=== PATIENT | female | born 1955 | race Caucasian/White ===

== ENCOUNTER 2021-04-05 00:15 | Inpatient (IN) | payer SELFPAY ==
[2021-04-05 00:43] VITALS: BMI 36.2
[2021-04-05] MEDS ORDERED: FAMOTIDINE 20 MG/50 ML IVPB 20 MG/50 ML MG IVPB ONE (01:11)
[2021-04-05] MEDS ORDERED: MAG HYDROX/AL HYDROX/SIMETH 30 ML UNIT-DOSE CUP PO ONE (01:11)
[2021-04-05] MEDS ORDERED: FAMOTIDINE 20 MG TABLET PO ONE (01:43)
[2021-04-05] MEDS ORDERED: FAMOTIDINE 20 MG TABLET ONE (01:56)
[2021-04-05] MEDS ORDERED: MAG HYDROX/AL HYDROX/SIMETH 30 ML UNIT-DOSE CUP ONE ×2 (01:56→02:21)
[2021-04-05 05:48] LABS: HEMATOCRIT 38.7 % (32.4-45.2); HEMOGLOBIN 13.4 GM/dL (10.7-15.3); MCH 30.2 pg (25.7-33.7); MCHC 34.7 g/dl (32.0-36.0); MEAN PLT VOLUME 8.2 fl (7.5-11.1); PLATELET COUNT 241 10^3/uL (134-434); RBC 4.44 M/mm3 (3.60-5.2); RDW 14.4 % (11.6-15.6); WHITE BLOOD COUNT 23.6 K/mm3 (4.0-10.0)
[2021-04-05 06:07] LABS: CHLORIDE 100 mmol/L (98-107); SODIUM 136 mmol/L (136-145)
[2021-04-05 06:09] LABS: CALCIUM 8.8 mg/dL (8.5-10.1)
[2021-04-05 06:10] LABS: ALBUMIN 3.4 g/dl (3.4-5.0); ANION GAP 9 MMOL/L (8-16); BLOOD UREA NITROGEN 11.4 mg/dL (7-18); CO2 27 mmol/L (21-32); GLUCOSE,RANDOM 141 mg/dL (74-106)
[2021-04-05 06:13] LABS: CREATININE 0.9 mg/dL (0.55-1.3); SGOT/AST 984 U/L (15-37); SGPT/ALT 556 U/L (13-61)
[2021-04-05 06:14] LABS: BILIRUBIN,TOTAL 2.4 mg/dL (0.2-1)
[2021-04-05 06:15] LABS: TOT PROT 7.4 g/dl (6.4-8.2)
[2021-04-05 06:16] LABS: ALK PHOS 214 U/L (45-117)
[2021-04-05] MEDS ORDERED: PIPERACILLIN/TAZOB 3.375 GM 3.375 GM in DEXTROSE 5%-WATER - 50 ML IVPB ONE (06:30)
[2021-04-05 07:41] LABS: LIPASE 4798 U/L (73-393)
[2021-04-05 07:47] LABS: LIPASE 4184 U/L (73-393)
[2021-04-05 08:05] LABS: LACTIC ACID 3.1 mmol/L (0.4-2.0)
[2021-04-05 08:14] LABS: PROTHROMBIN TIME (PATIENT) 12.1 SEC (9.7-13.0)
[2021-04-05 08:17] LABS: ACTIVATED PTT 28.1 SECONDS (25.2-36.5)
[2021-04-05] MEDS ORDERED: LACTATED RINGERS SOLUTION 1000 ML INFUS.BAG IV ONE (09:05)
[2021-04-05 09:30] LABS: CHOLESTEROL 231 mg/dL (50-200)
[2021-04-05 09:30] LABS: ANISOCYTOSIS 0; MACROCYTOSIS 0; PLATELET ESTIMATE NORMAL
[2021-04-05 09:31] LABS: TRIGLYCERIDES 82 mg/dL (0-150)
[2021-04-05 09:32] LABS: LDL CHOLESTEROL (ONLY SJRH) 163 mg/dL (5-100)
[2021-04-05 09:33] LABS: HDL CHOLESTEROL 38 mg/dL (40-60)
[2021-04-05 09:58] LABS: PH,URINE 7.5 (5.0-8.0); URINE APPEARANCE CLEAR; URINE BILIRUBIN 1+ (NEGATIVE); URINE COLOR DK YELLOW; URINE GLUCOSE (UA) NEGATIVE (NEGATIVE); URINE KETONE NEGATIVE (NEGATIVE); URINE LEUK ESTERASE NEGATIVE (NEGATIVE); URINE NITRITE NEGATIVE (NEGATIVE); URINE PROTEIN NEGATIVE (NEGATIVE)
[2021-04-05 11:18] LABS: LACTIC ACID 2.3 mmol/L (0.4-2.0)
[2021-04-05] MEDS ORDERED: morphine CARPU-JECT 2 MG/1 ML DISP.SYRIN IVPUSH PRN (11:31)
[2021-04-05] MEDS ORDERED: ACETAMINOPHEN 325 MG TABLET (FP) PO PRN (11:31)
[2021-04-05] MEDS ORDERED: morphine SULFATE 4 MG/ML VIAL IVPUSH PRN (11:31)
[2021-04-05] MEDS ORDERED: ONDANSETRON 4 MG/2 ML VIAL IVPUSH PRN (11:51)
[2021-04-05] MEDS ORDERED: MORPHINE SULFATE 2 MG/ML VIAL IVPUSH PRN (12:03)
[2021-04-05] MEDS ORDERED: ACETAMINOPHEN INJECTION 100 ML IVPB ONE (12:29)
[2021-04-05] MEDS ORDERED: MEROPENEM 1 GM VIAL (RESTRICTED TO ID) IVPB ONE (12:34)
[2021-04-05] MEDS ORDERED: ONDANSETRON 4 MG/2 ML VIAL ONE (12:44)
[2021-04-05] MEDS: MEROPENEM 1 GM in DEXTROSE 5%-WATER 100 ML IVPB SCH ×2 (12:48→18:11)
[2021-04-05] MEDS: LACTATED RINGERS SOLUTION 1,000 ML/1,000 ML INFUS.BAG IV SCH ×2 (12:48→21:15)
[2021-04-05 16:28] LABS: CHOLESTEROL 221 mg/dL (50-200)
[2021-04-05 16:29] LABS: LDL CHOLESTEROL (ONLY SJRH) 159 mg/dL (5-100); TRIGLYCERIDES 84 mg/dL (0-150)
[2021-04-05 16:31] LABS: HDL CHOLESTEROL 40 mg/dL (40-60)
[2021-04-05] MEDS: INSULIN SLIDING SCALE (NOVOLOG) 1 VIAL SQ SCH ×2 (17:52→21:23)
[2021-04-05 21:55] LABS: LACTIC ACID 2.3 mmol/L (0.4-2.0)
[2021-04-06] MEDS ORDERED: DEXTROSE 5%-WATER 100 ML IVPB ONE ×3 (01:46→17:43)
[2021-04-06] MEDS ORDERED: MEROPENEM 1 GM VIAL (RESTRICTED TO ID) IVPB ONE ×3 (01:46→17:43)
[2021-04-06] MEDS: MEROPENEM 1 GM in DEXTROSE 5%-WATER 100 ML IVPB SCH ×3 (01:53→18:55)
[2021-04-06] MEDS: LACTATED RINGERS SOLUTION 1,000 ML/1,000 ML INFUS.BAG IV SCH ×3 (04:09→18:55)
[2021-04-06] MEDS: INSULIN SLIDING SCALE (NOVOLOG) 1 VIAL SQ SCH ×4 (06:24→23:08)
[2021-04-06 08:25] LABS: BASO % 0.2 % (0-2.0); EOS % 4.9 % (0-4.5); HEMOGLOBIN 11.2 GM/dL (10.7-15.3); LYMPH % 7.9 % (8-40); MCHC 33.8 g/dl (32.0-36.0); MEAN CELL VOLUME 88.8 fl (80-96); MEAN PLT VOLUME 8.5 fl (7.5-11.1); MONO % 6.4 % (3.8-10.2); NEUT % 80.6 % (42.8-82.8); PLATELET COUNT 200 10^3/uL (134-434); RBC 3.71 M/mm3 (3.60-5.2); RDW 15.2 % (11.6-15.6); WHITE BLOOD COUNT 14.3 K/mm3 (4.0-10.0)
[2021-04-06 08:34] LABS: INR 1.3 (0.83-1.09)
[2021-04-06 08:37] LABS: ACTIVATED PTT 30.8 SECONDS (25.2-36.5)
[2021-04-06 08:42] LABS: BLOOD UREA NITROGEN 6.6 mg/dL (7-18); CALCIUM 7.8 mg/dL (8.5-10.1); MAGNESIUM 2.1 mg/dL (1.8-2.4)
[2021-04-06 08:44] LABS: BILIRUBIN,DIRECT 3.5 mg/dL (0.0-0.2)
[2021-04-06 08:45] LABS: CREATININE 0.7 mg/dL (0.55-1.3)
[2021-04-06 08:46] LABS: BILIRUBIN,TOTAL 4.5 mg/dL (0.2-1)
[2021-04-06 08:57] LABS: ALBUMIN 2.5 g/dl (3.4-5.0)
[2021-04-06] MEDS ORDERED: ENOXAPARIN NA (PORCINE) 40 MG/0.4 ML DISP.SYRIN SQ SCH (10:00)
[2021-04-06] MEDS ORDERED: INSULIN (NOVOLOG) ASPART 100 UNITS/ML 10ML VIAL ONE (10:52)
[2021-04-06] MEDS ORDERED: LACTATED RINGERS SOLUTION 1,000 ML/1,000 ML INFUS.BAG IV SCH (11:37)
[2021-04-06] MEDS ORDERED: PHYTONADIONE 10 MG/1 ML AMP IVPB ONE (12:00)
[2021-04-07] MEDS ORDERED: MEROPENEM 1 GM VIAL (RESTRICTED TO ID) IVPB ONE ×3 (02:13→17:57)
[2021-04-07] MEDS ORDERED: DEXTROSE 5%-WATER 100 ML IVPB ONE ×3 (02:13→17:58)
[2021-04-07] MEDS: MEROPENEM 1 GM in DEXTROSE 5%-WATER 100 ML IVPB SCH ×3 (03:10→18:17)
[2021-04-07] MEDS: LACTATED RINGERS SOLUTION 1,000 ML/1,000 ML INFUS.BAG IV SCH (03:51)
[2021-04-07] MEDS: INSULIN SLIDING SCALE (NOVOLOG) 1 VIAL SQ SCH ×4 (06:42→22:45)
[2021-04-07] MEDS ORDERED: DEXTROSE 5%-NORMAL SALINE 1,000 ML IV SCH (07:00)
[2021-04-07 09:02] LABS: BASO % 0.4 % (0-2.0); EOS % 8.5 % (0-4.5); HEMATOCRIT 32.9 % (32.4-45.2); HEMOGLOBIN 11.3 GM/dL (10.7-15.3); LYMPH % 13.1 % (8-40); MCH 30.5 pg (25.7-33.7); MCHC 34.5 g/dl (32.0-36.0); MEAN CELL VOLUME 88.5 fl (80-96); MEAN PLT VOLUME 8.6 fl (7.5-11.1); MONO % 8.6 % (3.8-10.2); NEUT % 69.4 % (42.8-82.8); PLATELET COUNT 185 10^3/uL (134-434); RBC 3.72 M/mm3 (3.60-5.2); WHITE BLOOD COUNT 8.5 K/mm3 (4.0-10.0)
[2021-04-07 09:06] LABS: INR 1.18 (0.83-1.09); PROTHROMBIN TIME (PATIENT) 14.5 SEC (9.7-13.0)
[2021-04-07 09:29] LABS: CALCIUM 8.5 mg/dL (8.5-10.1); CREATININE 0.5 mg/dL (0.55-1.3)
[2021-04-07 09:30] LABS: ALBUMIN 2.6 g/dl (3.4-5.0); BLOOD UREA NITROGEN 7.7 mg/dL (7-18)
[2021-04-07 09:31] LABS: TOT PROT 6.2 g/dl (6.4-8.2)
[2021-04-07 09:33] LABS: BILIRUBIN,DIRECT 1.1 mg/dL (0.0-0.2)
[2021-04-07 09:35] LABS: BILIRUBIN,TOTAL 1.8 mg/dL (0.2-1)
[2021-04-07] MEDS ORDERED: POTASSIUM CHLORIDE TABS 20 MEQ TABLET.ER (FP) PO ONE (11:06)
[2021-04-08] MEDS ORDERED: MEROPENEM 1 GM VIAL (RESTRICTED TO ID) IVPB ONE ×2 (01:16→08:47)
[2021-04-08] MEDS ORDERED: DEXTROSE 5%-WATER 100 ML IVPB ONE ×2 (01:16→08:47)
[2021-04-08] MEDS: MEROPENEM 1 GM in DEXTROSE 5%-WATER 100 ML IVPB SCH ×3 (01:20→16:59)
[2021-04-08] MEDS: INSULIN SLIDING SCALE (NOVOLOG) 1 VIAL SQ SCH ×4 (06:32→22:48)
[2021-04-08] MEDS ORDERED: PT OWN MED DRAWER 7, Y5N ONE (07:36)
[2021-04-08 08:28] LABS: BASO % 0.4 % (0-2.0); EOS % 7.3 % (0-4.5); HEMATOCRIT 36.2 % (32.4-45.2); HEMOGLOBIN 12.3 GM/dL (10.7-15.3); MCH 30.1 pg (25.7-33.7); MCHC 34.1 g/dl (32.0-36.0); MEAN CELL VOLUME 88.3 fl (80-96); MEAN PLT VOLUME 8.4 fl (7.5-11.1); MONO % 7.4 % (3.8-10.2); NEUT % 66.9 % (42.8-82.8); PLATELET COUNT 230 10^3/uL (134-434); RDW 15.4 % (11.6-15.6); WHITE BLOOD COUNT 7.6 K/mm3 (4.0-10.0)
[2021-04-08 08:47] LABS: CALCIUM 8.7 mg/dL (8.5-10.1)
[2021-04-08 08:48] LABS: ALBUMIN 2.9 g/dl (3.4-5.0); BLOOD UREA NITROGEN 7.9 mg/dL (7-18); MAGNESIUM 2.3 mg/dL (1.8-2.4)
[2021-04-08 08:50] LABS: AMYLASE 82 U/L (25-115)
[2021-04-08 08:51] LABS: CREATININE 0.6 mg/dL (0.55-1.3)
[2021-04-08 08:53] LABS: BILIRUBIN,TOTAL 1.2 mg/dL (0.2-1); LIPASE 1280 U/L (73-393); TOT PROT 7.1 g/dl (6.4-8.2)
[2021-04-08] MEDS ORDERED: MAGNESIUM OXIDE 400 MG TABLET (FP) PO ONE (17:55)
[2021-04-09] MEDS: MEROPENEM 1 GM in DEXTROSE 5%-WATER 100 ML IVPB SCH ×2 (02:14→09:16)
[2021-04-09] MEDS: INSULIN SLIDING SCALE (NOVOLOG) 1 VIAL SQ SCH ×2 (06:37→10:23)
[2021-04-09 08:31] LABS: BASO % 1.1 % (0-2.0); EOS % 6.1 % (0-4.5); HEMATOCRIT 36.9 % (32.4-45.2); HEMOGLOBIN 12.6 GM/dL (10.7-15.3); MCH 30.2 pg (25.7-33.7); MCHC 34.1 g/dl (32.0-36.0); MEAN CELL VOLUME 88.3 fl (80-96); MEAN PLT VOLUME 8.7 fl (7.5-11.1); MONO % 10.4 % (3.8-10.2); NEUT % 57.4 % (42.8-82.8); PLATELET COUNT 263 10^3/uL (134-434); RBC 4.18 M/mm3 (3.60-5.2); RDW 15.2 % (11.6-15.6); WHITE BLOOD COUNT 7.7 K/mm3 (4.0-10.0)
[2021-04-09 08:48] LABS: CALCIUM 9.1 mg/dL (8.5-10.1)
[2021-04-09 08:49] LABS: BLOOD UREA NITROGEN 11.4 mg/dL (7-18); MAGNESIUM 2.3 mg/dL (1.8-2.4)
[2021-04-09 08:51] LABS: CREATININE 0.6 mg/dL (0.55-1.3)
[2021-04-09 08:53] LABS: BILIRUBIN,TOTAL 0.8 mg/dL (0.2-1); TOT PROT 7.2 g/dl (6.4-8.2)
[2021-04-09 14:29] VITALS: BP 124/59; PULSE 89; TEMP 98.5
== END 2021-04-09 15:38 | disposition home or self-care (01) | DRG 282 ==
LOC: JER 00:15 → JERBED 09:14 → J7W 15:14
PROVIDERS: ADMIT Internal Medicine; ATTEND Nurse Practitioner Acute Care
DX: K85.10 Biliary acute pancreatitis without necrosis or infection (principal); K82.1 Hydrops of gallbladder; E87.2 Acidosis; K83.09 Other cholangitis; E66.01 Morbid (severe) obesity due to excess calories; E78.5 Hyperlipidemia, unspecified; R11.2 Nausea with vomiting, unspecified; E80.6 Other disorders of bilirubin metabolism; R74.01 Elevation of levels of liver transaminase levels; D72.829 Elevated white blood cell count, unspecified; R10.10 Upper abdominal pain, unspecified; R74.8 Abnormal levels of other serum enzymes; Z68.36 Body mass index [BMI] 36.0-36.9, adult; F22 Delusional disorders; K80.20 Calculus of gallbladder without cholecystitis without obstruction
CPT/HCPCS: 36415; 71045-TC-FY; 74177-TC; 76705-TC; 80048; 80053; 80061; 80076; 81003; 82150; 82248; 82550; 82962; 83036; 83605; 83690; 83735; 84443; 84484; 85025; 85610; 85730; 86140; 86850; 86900; 86901; 87040; 87077; 87086; 93005; 93010; 97116-GP; 97161-GP; 99285-25; C9803; Q9967; U0003; U0005

== ENCOUNTER 2023-08-24 17:54 | Inpatient (IN) | payer OTHER ==
[2023-08-24 18:51] VITALS: BMI 45.3
[2023-08-24] MEDS: MEROPENEM 1 GM in DEXTROSE 5%-WATER 100 ML IVPB ONE (20:55)
[2023-08-24] MEDS ORDERED: MEROPENEM 1 GM VIAL (RESTRICTED TO ID) IVPB ONE (20:57)
[2023-08-24] MEDS ORDERED: VANCOMYCIN 1 GRAM (PRE-DOCKED) 1,000 MG/250 ML BAG IVPB ONE (20:58)
[2023-08-24] MEDS ORDERED: DEXTROSE 5%-WATER 100 ML IVPB ONE (20:58)
[2023-08-24 21:01] LABS: BASO % 0.5 % (0-2.0); EOS % 4.9 % (0-4.5); HEMOGLOBIN 10.6 GM/dL (10.7-15.3); LYMPH % 10.1 % (8-40); MCH 26.5 pg (25.7-33.7); MCHC 33.1 g/dl (32.0-36.0); MEAN CELL VOLUME 80.2 fl (80-96); MEAN PLT VOLUME 7.1 fl (7.5-11.1); MONO % 11.2 % (3.8-10.2); NEUT % 73.3 % (42.8-82.8); PLATELET COUNT 351 10^3/uL (134-434); RBC 3.99 M/mm3 (3.60-5.2); RDW 19.4 % (11.6-15.6); WHITE BLOOD COUNT 7.7 K/mm3 (4.0-10.0)
[2023-08-24 21:08] LABS: INR 1.21 (0.83-1.09)
[2023-08-24 21:11] LABS: ACTIVATED PTT 29.9 SECONDS (25.2-36.5)
[2023-08-24] MEDS: VANCOMYCIN 1,000 MG in DEXTROSE 5%-WATER - 250 ML IVPB ONE (21:19)
[2023-08-24 21:25] LABS: POTASSIUM 4.6 mmol/L (3.5-5.1)
[2023-08-24 21:27] LABS: CALCIUM 8.9 mg/dL (8.5-10.1)
[2023-08-24 21:28] LABS: ALBUMIN 2.4 g/dl (3.4-5.0); BLOOD UREA NITROGEN 8.3 mg/dL (7-18)
[2023-08-24 21:31] LABS: CREATININE 0.5 mg/dL (0.55-1.3)
[2023-08-24 21:32] LABS: BILIRUBIN,TOTAL 0.4 mg/dL (0.2-1); TOT PROT 8.6 g/dl (6.4-8.2)
[2023-08-25] MEDS ORDERED: VANCOMYCIN 2,000 MG in DEXTROSE 5%-WATER - 500 ML IVPB ONE (01:00)
[2023-08-25] MEDS ORDERED: VANCOMYCIN 1,000 MG in DEXTROSE 5%-WATER - 250 ML IVPB ONE (01:08)
[2023-08-25 07:55] LABS: BASO % 0.2 % (0-2.0); EOS % 0.2 % (0-4.5); HEMATOCRIT 30.4 % (32.4-45.2); HEMOGLOBIN 10.2 GM/dL (10.7-15.3); LYMPH % 4.3 % (8-40); MCH 26.8 pg (25.7-33.7); MCHC 33.5 g/dl (32.0-36.0); MEAN CELL VOLUME 79.8 fl (80-96); MEAN PLT VOLUME 7.7 fl (7.5-11.1); MONO % 6.4 % (3.8-10.2); NEUT % 88.9 % (42.8-82.8); PLATELET COUNT 352 10^3/uL (134-434); RDW 18.4 % (11.6-15.6); WHITE BLOOD COUNT 14.3 K/mm3 (4.0-10.0)
[2023-08-25 08:30] LABS: POTASSIUM 4.3 mmol/L (3.5-5.1)
[2023-08-25 08:38] LABS: CALCIUM 8.5 mg/dL (8.5-10.1)
[2023-08-25 08:39] LABS: ALBUMIN 2.3 g/dl (3.4-5.0); BLOOD UREA NITROGEN 11.2 mg/dL (7-18); MAGNESIUM 1.8 mg/dL (1.8-2.4)
[2023-08-25 08:42] LABS: CREATININE 0.7 mg/dL (0.55-1.3)
[2023-08-25 08:44] LABS: BILIRUBIN,TOTAL 0.4 mg/dL (0.2-1)
[2023-08-25] MEDS: ENOXAPARIN NA (PORCINE) 40 MG/0.4 ML DISP.SYRIN SQ SCH (09:12)
[2023-08-25] MEDS ORDERED: MEROPENEM 500 MG VIAL (RESTRICTED TO ID) IVPB ONE (09:13)
[2023-08-25] MEDS: MEROPENEM 1 GM in DEXTROSE 5%-WATER 100 ML IVPB SCH ×2 (09:25→17:39)
[2023-08-25] MEDS: SODIUM CHLORIDE 1,000 ML IV SCH (09:25)
[2023-08-25] MEDS: ACYCLOVIR INJECTION 800 MG in DEXTROSE 5%-WATER - 250 ML IVPB SCH (10:39)
[2023-08-25] MEDS: OLANZapine 10 MG TABLET PO SCH (10:44)
[2023-08-25] MEDS ORDERED: ONDANSETRON 4 MG/2 ML VIAL IVPUSH PRN (17:34)
[2023-08-25] MEDS ORDERED: MEROPENEM 1 GM VIAL (RESTRICTED TO ID) IVPB ONE (17:39)
[2023-08-26] MEDS ORDERED: MEROPENEM 1 GM VIAL (RESTRICTED TO ID) IVPB ONE ×2 (03:40→09:28)
[2023-08-26] MEDS: MEROPENEM 1 GM in DEXTROSE 5%-WATER 100 ML IVPB SCH (07:20)
[2023-08-26] MEDS: CEFTRIAXONE 2 GM-D5W BAG 2 GM/50 ML BAG IVPB SCH (07:20)
[2023-08-26 08:34] LABS: BASO % 0.6 % (0-2.0); EOS % 6.7 % (0-4.5); HEMATOCRIT 32.4 % (32.4-45.2); HEMOGLOBIN 10.8 GM/dL (10.7-15.3); LYMPH % 10.5 % (8-40); MCHC 33.4 g/dl (32.0-36.0); MEAN CELL VOLUME 80.7 fl (80-96); MEAN PLT VOLUME 6.9 fl (7.5-11.1); MONO % 8.3 % (3.8-10.2); NEUT % 73.9 % (42.8-82.8); PLATELET COUNT 346 10^3/uL (134-434); RBC 4.01 M/mm3 (3.60-5.2); WHITE BLOOD COUNT 8.1 K/mm3 (4.0-10.0)
[2023-08-26 08:52] LABS: POTASSIUM 4.1 mmol/L (3.5-5.1)
[2023-08-26 08:54] LABS: CALCIUM 8.9 mg/dL (8.5-10.1)
[2023-08-26 08:55] LABS: ALBUMIN 2.5 g/dl (3.4-5.0); BLOOD UREA NITROGEN 9.1 mg/dL (7-18)
[2023-08-26 08:58] LABS: CREATININE 0.6 mg/dL (0.55-1.3)
[2023-08-26 08:59] LABS: BILIRUBIN,TOTAL 0.3 mg/dL (0.2-1)
[2023-08-26] MEDS ORDERED: VANCOMYCIN/WATER 1250 MG 1,250 MG/250 ML BAG IVPB ONE (09:29)
[2023-08-26] MEDS: VANCOMYCIN/WATER 1250 MG 1,250 MG/250 ML BAG IVPB SCH (09:35)
[2023-08-26] MEDS: MINERAL OIL/PET HY-PHL TOPICAL OINTMENT 454 GM JAR TP SCH (15:44)
[2023-08-27 10:24] LABS: HEMATOCRIT 33.2 % (32.4-45.2); HEMOGLOBIN 11.3 GM/dL (10.7-15.3); MCH 27.4 pg (25.7-33.7); MEAN CELL VOLUME 80.8 fl (80-96); PLATELET COUNT 360 10^3/uL (134-434); RDW 18.9 % (11.6-15.6)
[2023-08-27 10:39] LABS: POTASSIUM 4.3 mmol/L (3.5-5.1)
[2023-08-27 10:44] LABS: CALCIUM 8.7 mg/dL (8.5-10.1)
[2023-08-27 10:45] LABS: BLOOD UREA NITROGEN 11.5 mg/dL (7-18)
[2023-08-27 10:48] LABS: CREATININE 0.7 mg/dL (0.55-1.3); PHOSPHOROUS 3.6 mg/dL (2.5-4.9)
[2023-08-27] MEDS ORDERED: MEROPENEM 1 GM VIAL (RESTRICTED TO ID) IVPB ONE (17:41)
[2023-08-28 04:23] VITALS: RESP 18
[2023-08-28 09:15] LABS: HEMATOCRIT 34.8 % (32.4-45.2); HEMOGLOBIN 11.5 GM/dL (10.7-15.3); MCH 26.9 pg (25.7-33.7); MCHC 33.1 g/dl (32.0-36.0); MEAN CELL VOLUME 81.3 fl (80-96); MEAN PLT VOLUME 7.7 fl (7.5-11.1); PLATELET COUNT 397 10^3/uL (134-434); RBC 4.27 M/mm3 (3.60-5.2); RDW 18.8 % (11.6-15.6); WHITE BLOOD COUNT 8.9 K/mm3 (4.0-10.0)
[2023-08-28 09:33] LABS: POTASSIUM 4.5 mmol/L (3.5-5.1)
[2023-08-28 09:36] LABS: BLOOD UREA NITROGEN 14.9 mg/dL (7-18); CALCIUM 8.4 mg/dL (8.5-10.1)
[2023-08-28 09:40] LABS: CREATININE 0.7 mg/dL (0.55-1.3)
[2023-08-29 13:15] LABS: BASO % 0.3 % (0-2.0); EOS % 7.4 % (0-4.5); HEMATOCRIT 33.5 % (32.4-45.2); HEMOGLOBIN 11.2 GM/dL (10.7-15.3); LYMPH % 10.3 % (8-40); MCHC 33.6 g/dl (32.0-36.0); MEAN CELL VOLUME 80.5 fl (80-96); MEAN PLT VOLUME 7.5 fl (7.5-11.1); MONO % 6.1 % (3.8-10.2); NEUT % 75.9 % (42.8-82.8); PLATELET COUNT 394 10^3/uL (134-434); RBC 4.16 M/mm3 (3.60-5.2); RDW 18.4 % (11.6-15.6); WHITE BLOOD COUNT 8.5 K/mm3 (4.0-10.0)
[2023-08-29 13:33] LABS: POTASSIUM 4.4 mmol/L (3.5-5.1)
[2023-08-29 13:36] LABS: CALCIUM 8.3 mg/dL (8.5-10.1)
[2023-08-29 13:37] LABS: BLOOD UREA NITROGEN 11.5 mg/dL (7-18)
[2023-08-29 13:40] LABS: CREATININE 0.6 mg/dL (0.55-1.3)
[2023-08-29 13:55] LABS: ERYTHROCYTE SEDIMENTATION RATE 88 mm/hr (0-30)
[2023-08-30 08:57] LABS: HEMATOCRIT 32.7 % (32.4-45.2); HEMOGLOBIN 10.7 GM/dL (10.7-15.3); MCH 26.8 pg (25.7-33.7); MCHC 32.7 g/dl (32.0-36.0); MEAN CELL VOLUME 82.2 fl (80-96); MEAN PLT VOLUME 7.5 fl (7.5-11.1); PLATELET COUNT 335 10^3/uL (134-434); RBC 3.98 M/mm3 (3.60-5.2); RDW 19.1 % (11.6-15.6); WHITE BLOOD COUNT 10.8 K/mm3 (4.0-10.0)
[2023-08-30 09:14] LABS: POTASSIUM 4.5 mmol/L (3.5-5.1)
[2023-08-30 09:16] LABS: CALCIUM 8.2 mg/dL (8.5-10.1)
[2023-08-30 09:17] LABS: BLOOD UREA NITROGEN 14.2 mg/dL (7-18)
[2023-08-30 09:20] LABS: CREATININE 0.5 mg/dL (0.55-1.3)
[2023-08-30] MEDS: VANCOMYCIN/WATER 1250 MG 1,250 MG/250 ML BAG IVPB SCH (20:59)
[2023-08-31 10:11] LABS: HEMATOCRIT 33.1 % (32.4-45.2); MCHC 33.2 g/dl (32.0-36.0); MEAN CELL VOLUME 81.2 fl (80-96); MEAN PLT VOLUME 7.7 fl (7.5-11.1); PLATELET COUNT 388 10^3/uL (134-434); RBC 4.07 M/mm3 (3.60-5.2); WHITE BLOOD COUNT 8.8 K/mm3 (4.0-10.0)
[2023-08-31 10:34] LABS: POTASSIUM 3.8 mmol/L (3.5-5.1)
[2023-08-31] MEDS: VANCOMYCIN PREMIX 1.5 GM 1,500 MG/300 ML BAG IVPB SCH (10:54)
[2023-08-31 11:49] LABS: CALCIUM 9.1 mg/dL (8.5-10.1)
[2023-08-31 11:50] LABS: BLOOD UREA NITROGEN 12.3 mg/dL (7-18)
[2023-08-31 11:53] LABS: CREATININE 0.6 mg/dL (0.55-1.3)
[2023-08-31] MEDS: CLOTRIMAZOLE 1% CREAM TP SCH (22:44)
[2023-09-01 10:17] LABS: HEMATOCRIT 31.6 % (32.4-45.2); HEMOGLOBIN 10.2 GM/dL (10.7-15.3); MCH 26.6 pg (25.7-33.7); MCHC 32.4 g/dl (32.0-36.0); MEAN CELL VOLUME 82.1 fl (80-96); MEAN PLT VOLUME 7.7 fl (7.5-11.1); PLATELET COUNT 358 10^3/uL (134-434); RBC 3.84 M/mm3 (3.60-5.2); RDW 18.7 % (11.6-15.6); WHITE BLOOD COUNT 11.9 K/mm3 (4.0-10.0)
[2023-09-01 10:41] LABS: POTASSIUM 4.1 mmol/L (3.5-5.1)
[2023-09-01 10:45] LABS: CALCIUM 9.1 mg/dL (8.5-10.1)
[2023-09-01 10:46] LABS: BLOOD UREA NITROGEN 12.4 mg/dL (7-18)
[2023-09-01 10:49] LABS: CREATININE 0.6 mg/dL (0.55-1.3)
[2023-09-01] MEDS: CEPHALEXIN MONOHYDRATE 500 MG CAPSULE (UD) PO ONE (15:14)
[2023-09-01] MEDS: DOXYCYCLINE HYCLATE 100 MG CAPSULE PO SCH (17:32)
[2023-09-01] MEDS: CEFPODOXIME PROXETIL 200 MG TABLET [NF] PO SCH (21:48)
[2023-09-01] MEDS ORDERED: CEPHALEXIN 250 MG/5 ML ORAL SUSPENSION PO SCH (22:00)
[2023-09-02 11:09] VITALS: BP 153/73; PULSE 99; TEMP 98.4
== END 2023-09-02 11:50 | DRG 872 ==
LOC: JER 17:54 → JERBED 08-25 00:58 → J6S 08-26 15:15
PROVIDERS: ADMIT Internal Medicine; ATTEND Internal Medicine
DX: A41.9 Sepsis, unspecified organism (principal); L03.213 Periorbital cellulitis; E87.1 Hypo-osmolality and hyponatremia; L03.211 Cellulitis of face; Z68.42 Body mass index [BMI] 45.0-49.9, adult; Z59.00 Homelessness unspecified; E66.01 Morbid (severe) obesity due to excess calories; F20.9 Schizophrenia, unspecified; I25.10 Atherosclerotic heart disease of native coronary artery without angina pectoris; I10 Essential (primary) hypertension; D64.9 Anemia, unspecified; I87.2 Venous insufficiency (chronic) (peripheral); I89.0 Lymphedema, not elsewhere classified
CPT/HCPCS: 36415; 70481-TC; 80048; 80053; 82728; 82962; 83540; 83550; 83605; 83735; 84100; 85025; 85027; 85610; 85651; 85730; 86140; 86850; 86900; 86901; 87040; 87070; 87081; 87186; 87205; 87635; 93005; 93010; 99285-25; G0480; Q9967

== ENCOUNTER 2024-12-24 09:27 | Inpatient (IN) | payer OTHER ==
[2024-12-24 11:13] LABS: ABSOLUTE IMMATURE GRANULOCYTES 0.05 x10^3/uL (0.0-0.031); BASOPHILS # 0.03 x10^3/uL (0.01-0.08); EOSINOPHILS # 0.34 x10^3/uL (0.04-0.36); HEMATOCRIT 29.9 % (34.1-44.9); HEMOGLOBIN 9.5 g/dL (11.2-15.7); MCHC 31.8 g/dl (32.2-35.5); MEAN CELL VOLUME 77.5 fl (79.4-94.8); MEAN PLT VOLUME 9.3 fl (9.4-12.3); MONOCYTE # 0.76 x10^3/uL (0.24-0.86); MONOCYTE % 8.9 % (4.7-12.5); PLATELET COUNT 248 x10^3/uL (182-369); RDW 21.8 % (12.4-16.4)
[2024-12-24 11:20] LABS: INR 1.18 (0.83-1.09)
[2024-12-24 11:22] LABS: ACTIVATED PTT 31.3 SECONDS (25.2-36.5)
[2024-12-24 11:44] LABS: POTASSIUM 3.6 mmol/L (3.5-5.1)
[2024-12-24 11:46] LABS: CALCIUM 8.9 mg/dL (8.5-10.1)
[2024-12-24 11:47] LABS: ALBUMIN 1.9 g/dl (3.4-5.0); BLOOD UREA NITROGEN 11.2 mg/dL (7-18); MAGNESIUM 2.2 mg/dL (1.8-2.4)
[2024-12-24 11:50] LABS: CREATININE 0.8 mg/dL (0.55-1.3)
[2024-12-24 11:51] LABS: BILIRUBIN,TOTAL 0.3 mg/dL (0.2-1); TOT PROT 7.9 g/dl (6.4-8.2)
[2024-12-24 11:55] LABS: N-TERMINAL BNP 694.8 pg/ml (5-125)
[2024-12-24 18:06] LABS: EPI CELLS 2 /uL (0-25.1); HYALINE CASTS 1 /uL (0-3.1); PH,URINE 5.5 (5.0-8.0); URINE APPEARANCE CLOUDY; URINE BACTERIA >9,000 /uL (0-1359); URINE BILIRUBIN NEGATIVE (NEGATIVE); URINE COLOR DK YELLOW; URINE GLUCOSE (UA) NEGATIVE (NEGATIVE); URINE KETONE TRACE (NEGATIVE); URINE LEUK ESTERASE 1+ (NEGATIVE); URINE NITRITE NEGATIVE (NEGATIVE); URINE PROTEIN TRACE (NEGATIVE); URINE RBC 15 /uL (0-23.9); URINE UROBILINOGEN 0.2 mg/dL (0.2-1.0); URINE WBC 234 /uL (0-25.8)
[2024-12-24] MEDS ORDERED: CEFTRIAXONE 1 GM/50 ML BAG ONE (18:08)
[2024-12-24] MEDS ORDERED: cefTRIAXone SODIUM 1 GM VIAL ONE (18:09)
[2024-12-24] MEDS: CEFTRIAXONE 1 GM in DEXTROSE 5%-WATER 100 ML IVPB ONE (18:23)
[2024-12-24] MEDS: HEPARIN NA (PORCINE) 5,000 UNITS/ML 1ML VIAL SQ SCH (21:51)
[2024-12-25] MEDS: OLANZapine 10 MG TABLET PO SCH (10:25)
[2024-12-25] MEDS: ATORVASTATIN CA 40 MG TABLET (FP) PO SCH (21:27)
[2024-12-26 07:15] LABS: POTASSIUM 4.5 mmol/L (3.5-5.1)
[2024-12-26 07:17] LABS: CALCIUM 8.8 mg/dL (8.5-10.1)
[2024-12-26 07:18] LABS: ALBUMIN 1.8 g/dl (3.4-5.0); BLOOD UREA NITROGEN 11.6 mg/dL (7-18)
[2024-12-26 07:21] LABS: CREATININE 0.7 mg/dL (0.55-1.3)
[2024-12-26 07:23] LABS: BILIRUBIN,TOTAL 0.3 mg/dL (0.2-1); TOT PROT 7.5 g/dl (6.4-8.2)
[2024-12-26 07:28] LABS: ABSOLUTE IMMATURE GRANULOCYTES 0.03 x10^3/uL (0.0-0.031); BASOPHILS # 0.04 x10^3/uL (0.01-0.08); EOSINOPHIL % 4.4 % (0.7-5.8); HEMOGLOBIN 9.3 g/dL (11.2-15.7); MEAN CELL VOLUME 80.9 fl (79.4-94.8); MEAN PLT VOLUME 9.4 fl (9.4-12.3); MONOCYTE # 0.83 x10^3/uL (0.24-0.86); MONOCYTE % 12.2 % (4.7-12.5); PLATELET COUNT 223 x10^3/uL (182-369); RDW 22.6 % (12.4-16.4)
[2024-12-26] MEDS: AZTREONAM 1 GM in DEXTROSE 5%-WATER - 50 ML IVPB SCH (17:31)
[2024-12-27 06:37] LABS: ABSOLUTE IMMATURE GRANULOCYTES 0.05 x10^3/uL (0.0-0.031); BASOPHILS # 0.04 x10^3/uL (0.01-0.08); EOSINOPHILS # 0.36 x10^3/uL (0.04-0.36); HEMATOCRIT 29.5 % (34.1-44.9); MCHC 30.5 g/dl (32.2-35.5); MEAN CELL VOLUME 80.2 fl (79.4-94.8); MEAN PLT VOLUME 9.1 fl (9.4-12.3); MONOCYTE # 1.04 x10^3/uL (0.24-0.86); MONOCYTE % 11.6 % (4.7-12.5); PLATELET COUNT 328 x10^3/uL (182-369); RDW 22.2 % (12.4-16.4)
[2024-12-27 07:04] LABS: POTASSIUM 3.9 mmol/L (3.5-5.1)
[2024-12-27 07:13] LABS: ALBUMIN 1.8 g/dl (3.4-5.0); CALCIUM 8.8 mg/dL (8.5-10.1)
[2024-12-27 07:17] LABS: CREATININE 0.6 mg/dL (0.55-1.3)
[2024-12-27 07:19] LABS: BILIRUBIN,TOTAL 0.4 mg/dL (0.2-1); TOT PROT 7.6 g/dl (6.4-8.2)
[2024-12-28] MEDS: ALBUTEROL SO4 2.5/IPRATROPIUM 0.5 INH SOL 3 ML VIAL.NEB. NEB PRN (11:57)
[2024-12-28 13:25] LABS: ARTERIAL BLD GAS O2 SATURATION 97.5 % (95-98); ARTERIAL BLOOD GAS BASE EXCESS 9.5 mmol/L (-2-2); ARTERIAL BLOOD GAS PO2 105.5 mmHg (80-100); ARTERIAL BLOOD GAS pH 7.368 (7.350-7.450)
[2024-12-28 13:36] LABS: ALLENS TEST POSITIVE
[2024-12-28] MEDS: ALBUTEROL SO4 2.5/IPRATROPIUM 0.5 INH SOL 3 ML VIAL.NEB. NEB SCH (15:55)
[2024-12-28] MEDS: FUROSEMIDE 40 MG/4 ML INJECTABLE VIAL IVPUSH SCH (17:25)
[2024-12-28] MEDS ORDERED: ALBUTEROL SO4 2.5/IPRATROPIUM 0.5 INH SOL 3 ML VIAL.NEB. NEB PRN (20:54)
[2024-12-28] MEDS: ATORVASTATIN CA 40 MG TABLET (FP) PO SCH (21:49)
[2024-12-28] MEDS: HEPARIN NA (PORCINE) 5,000 UNITS/ML 1ML VIAL SQ SCH (21:49)
[2024-12-29] MEDS: AZTREONAM 1 GM in DEXTROSE 5%-WATER - 50 ML IVPB SCH (01:30)
[2024-12-29] MEDS ORDERED: ALBUTEROL SO4 2.5/IPRATROPIUM 0.5 INH SOL 3 ML VIAL.NEB. NEB SCH (08:00)
[2024-12-29] MEDS: FUROSEMIDE 40 MG/4 ML INJECTABLE VIAL IVPUSH SCH (09:15)
[2024-12-29] MEDS: OLANZapine 10 MG TABLET PO SCH (09:15)
[2024-12-29 10:21] LABS: ABSOLUTE IMMATURE GRANULOCYTES 0.04 x10^3/uL (0.0-0.031); BASOPHILS # 0.06 x10^3/uL (0.01-0.08); EOSINOPHIL % 3.8 % (0.7-5.8); HEMATOCRIT 34.9 % (34.1-44.9); HEMOGLOBIN 10.5 g/dL (11.2-15.7); MCHC 30.1 g/dl (32.2-35.5); MEAN CELL VOLUME 80.6 fl (79.4-94.8); MEAN PLT VOLUME 9.2 fl (9.4-12.3); MONOCYTE # 0.83 x10^3/uL (0.24-0.86); MONOCYTE % 7.8 % (4.7-12.5); PLATELET COUNT 459 x10^3/uL (182-369); RDW 22.7 % (12.4-16.4)
[2024-12-29 10:43] LABS: POTASSIUM 3.9 mmol/L (3.5-5.1)
[2024-12-29 10:47] LABS: CALCIUM 8.7 mg/dL (8.5-10.1)
[2024-12-29 10:48] LABS: ALBUMIN 1.9 g/dl (3.4-5.0); BLOOD UREA NITROGEN 9.4 mg/dL (7-18)
[2024-12-29 10:51] LABS: CREATININE 0.6 mg/dL (0.55-1.3)
[2024-12-29 10:53] LABS: TOT PROT 8.5 g/dl (6.4-8.2)
[2024-12-29 11:04] LABS: BILIRUBIN,TOTAL 0.5 mg/dL (0.2-1)
[2024-12-30 09:02] LABS: ABSOLUTE IMMATURE GRANULOCYTES 0.02 x10^3/uL (0.0-0.031); BASOPHILS # 0.04 x10^3/uL (0.01-0.08); EOSINOPHILS # 0.35 x10^3/uL (0.04-0.36); HEMATOCRIT 31.7 % (34.1-44.9); HEMOGLOBIN 9.6 g/dL (11.2-15.7); MCHC 30.3 g/dl (32.2-35.5); MEAN CELL VOLUME 79.6 fl (79.4-94.8); MEAN PLT VOLUME 9.4 fl (9.4-12.3); MONOCYTE # 0.55 x10^3/uL (0.24-0.86); MONOCYTE % 11.1 % (4.7-12.5); PLATELET COUNT 456 x10^3/uL (182-369); RDW 22.5 % (12.4-16.4)
[2024-12-30 09:29] LABS: POTASSIUM 3.8 mmol/L (3.5-5.1)
[2024-12-30 09:32] LABS: CALCIUM 8.7 mg/dL (8.5-10.1)
[2024-12-30 09:33] LABS: ALBUMIN 1.7 g/dl (3.4-5.0); BLOOD UREA NITROGEN 9.5 mg/dL (7-18)
[2024-12-30 09:36] LABS: CREATININE 0.4 mg/dL (0.55-1.3)
[2024-12-30 09:38] LABS: BILIRUBIN,TOTAL 0.4 mg/dL (0.2-1); TOT PROT 7.2 g/dl (6.4-8.2)
[2024-12-30] MEDS: CEFTRIAXONE 1 GM in DEXTROSE 5%-WATER - 50 ML IVPB SCH (20:27)
[2024-12-31 10:49] VITALS: BMI 40.2
[2024-12-31] MEDS: ASCORBIC ACID 500 MG TABLET (FP) PO SCH (21:17)
[2025-01-01 09:06] LABS: ABSOLUTE IMMATURE GRANULOCYTES 0.03 x10^3/uL (0.0-0.031); BASOPHILS # 0.06 x10^3/uL (0.01-0.08); EOSINOPHIL % 5.7 % (0.7-5.8); EOSINOPHILS # 0.36 x10^3/uL (0.04-0.36); HEMATOCRIT 32.6 % (34.1-44.9); HEMOGLOBIN 9.8 g/dL (11.2-15.7); MCHC 30.1 g/dl (32.2-35.5); MEAN CELL VOLUME 80.9 fl (79.4-94.8); MEAN PLT VOLUME 9.2 fl (9.4-12.3); MONOCYTE # 0.77 x10^3/uL (0.24-0.86); MONOCYTE % 12.1 % (4.7-12.5); PLATELET COUNT 449 x10^3/uL (182-369); RDW 22.7 % (12.4-16.4)
[2025-01-01 09:17] LABS: POTASSIUM 4.3 mmol/L (3.5-5.1)
[2025-01-01 09:21] LABS: ALBUMIN 1.8 g/dl (3.4-5.0); CALCIUM 8.7 mg/dL (8.5-10.1)
[2025-01-01] MEDS: MULTIVITAMINS (DAILY MVI) TABLET (FP) PO SCH (09:23)
[2025-01-01 09:24] LABS: CREATININE 0.5 mg/dL (0.55-1.3)
[2025-01-01 09:26] LABS: BILIRUBIN,TOTAL 0.2 mg/dL (0.2-1); TOT PROT 7.3 g/dl (6.4-8.2)
[2025-01-03] MEDS: HEPARIN NA (PORCINE) 5,000 UNITS/ML 1ML VIAL SQ SCH (05:43)
[2025-01-03 06:50] VITALS: RESP 18
[2025-01-03] MEDS: NITROFURANTOIN MONOHYD/M-CRYST 100 MG CAPSULE PO SCH (10:28)
[2025-01-03 17:05] VITALS: BP 123/69; PULSE 68; TEMP 97.7
== END 2025-01-03 18:26 | DRG 291 ==
LOC: JER 09:27 → JERBED 14:45 → OBSVTOIN 15:03 → J4S 20:12 → J5S 12-28 20:48
PROVIDERS: ADMIT Internal Medicine; ATTEND Internal Medicine
PROC: 0HBRXZZ Excision of Toe Nail, External Approach (ICD-10-PCS; principal; 2025-01-03)
PROC: 0HBRXZZ Excision of Toe Nail, External Approach (ICD-10-PCS; 2025-01-03)
PROC: 0HBRXZZ Excision of Toe Nail, External Approach (ICD-10-PCS; 2025-01-03)
PROC: 0HBRXZZ Excision of Toe Nail, External Approach (ICD-10-PCS; 2025-01-03)
PROC: 0HBRXZZ Excision of Toe Nail, External Approach (ICD-10-PCS; 2025-01-03)
PROC: 0HBRXZZ Excision of Toe Nail, External Approach (ICD-10-PCS; 2025-01-03)
PROC: 0HBRXZZ Excision of Toe Nail, External Approach (ICD-10-PCS; 2025-01-03)
PROC: 0HBRXZZ Excision of Toe Nail, External Approach (ICD-10-PCS; 2025-01-03)
PROC: 0HBRXZZ Excision of Toe Nail, External Approach (ICD-10-PCS; 2025-01-03)
PROC: 0HBRXZZ Excision of Toe Nail, External Approach (ICD-10-PCS; 2025-01-03)
DX: I11.0 Hypertensive heart disease with heart failure (principal); I50.33 Acute on chronic diastolic (congestive) heart failure; N39.0 Urinary tract infection, site not specified; Z68.41 Body mass index [BMI] 40.0-44.9, adult; F20.9 Schizophrenia, unspecified; I25.10 Atherosclerotic heart disease of native coronary artery without angina pectoris; I10 Essential (primary) hypertension; I87.2 Venous insufficiency (chronic) (peripheral); D50.9 Iron deficiency anemia, unspecified; I89.0 Lymphedema, not elsewhere classified; I73.9 Peripheral vascular disease, unspecified; R91.8 Other nonspecific abnormal finding of lung field; E66.01 Morbid (severe) obesity due to excess calories; B35.1 Tinea unguium
CPT/HCPCS: 0241U-QW; 36415; 36600; 70450-TC; 71045-TC-FY; 71250-TC; 72125-TC; 73521-TC-FY; 80053; 80061; 81003; 82803; 82962; 83036; 83735; 83880; 84439; 84443; 84484; 85025; 85610; 85730; 86850; 86900; 86901; 87040; 87070; 87077; 87086; 87205; 93005; 93010; 93306-TC; 93880-TC; 94640; 94660; 97161-GP; 99285-25; G0378